=== PATIENT | female | born 1945 | race Caucasian/White ===

== ENCOUNTER 2018-06-23 17:07 | Emergency (ER) | payer MEDICARE ==
[2018-06-23] MEDS ORDERED: SUBLIMAZE 100 MCG/2 ML IV ONE (17:24)
[2018-06-23] MEDS ORDERED: Zofran 4 MG/2 ML VIAL IV ONE (17:24)
[2018-06-23] MEDS ORDERED: Sodium Chloride 0.9% 1000 ML 1,000 ML IV SCH (17:30)
--- NOTE | 2018-06-23 17:32 | ERPHSYRPT ---
- History of Present Illness Time Seen by Provider: 06/23/18 17:15 Source: patient Physician History: PATIENT WITH A HISTORY OF TYPE 2 DIABETES SLIPPED ON OIL ON PAVEMENT [place] [employer] FELL TO GROUND SUSTAINED INJURY TO HER LEFT HIP, KNEE, HDZ AND ANKLE. DENIES HEAD, NECK, OR BACK INJURY. Occurred: just prior to arrival Reason for Fall: slipped Injuries/Pain Location: upper extremity, lower extremity Loss of Consciousness: no loss of consciousness Quality: sharpness, throbbing Severity of Pain-Max: moderate Severity of Pain-Current: moderate Associated Symptoms (Fall): extremity injury Allergies/Adverse Reactions: Penicillins Allergy (Verified 06/23/18 18:09) - Review of Systems Constitutional: No Symptoms Eyes: No Symptoms Ears, Nose, & Throat: Nose Pain Musculoskeletal: Injury, Joint Pain, Joint Swelling Neurological: No Symptoms Psychological: No Symptoms - Nursing Vital Signs Nursing Vital Signs: Initial Vital Signs O2 Sat by Pulse Oximetry 98 06/23/18 17:46 Pain Scale Pain Intensity 6 - Bethesda Coma Score Best Eye Response (Carlyle): (4) open spontaneously Best Verbal Response (Bethesda): (5) oriented Best Motor Response (Bethesda): (6) obeys commands Bethesda Total: 15 - Physical Exam General Appearance: mild distress Head Injury: no evidence of injury Eye Exam: PERRL/EOMI ENT Exam: airway nml Neck Exam: supple, trachea midline, full range of motion, other (THERE IS NO POST CERVICAL SPINAL TENDERNESS,) Respiratory/Chest Exam: normal breath sounds Cardiovascular Exam: normal heart sounds, regular rate/rhythm Extremity Exam: normal inspection, hip tenderness (THERE IS BILATERAL GREATER TROCHANTER TENDERNESS, NO EXTREMITY ROTATION, NO CREPITUS OR ECCHYMOSIS, LEFT KNEE WITH TENDERNESS, LIMITED RANGE OF MOTION, PATELLA MOBILE AND MIDLINE, TENDERNESS. TENDERNESS LEFT HDZ PROXIMAL TO DISTAL ASPECT WITH MINIMAL SWELLING NO CREPITUS OR ECCHYMOSIS. LEFT ANKLE BIMALLEOLAR TENDERNESS WITH MINIMAL SWELLING NO ECCHYMOSIS OR CREPITUS, LIMITED RANGE OF MOTION, LEFT PEDIS PULSE 2 +) Peripheral Pulses: carotid (R): 2+, carotid (L): 2+, femoral (R): 2+, femoral (L ): 2+, dorsalis-pedis (R): 2+, dorsalis-pedis (L): 2+ Neurologic Exam: alert, oriented x 3 Skin Exam: normal color SpO2 Interpretation: normal SpO2: 98 - Radiology Exams Other X-ray Interpretation: Interpreted by me, Negative, No Fracture Right Hip X-ray Interpretation: Interpreted by me, Negative, No Fracture Left Hip X-ray Interpretation: Interpreted by me, Negative, No Fracture Left Femur X-ray Interpretation: Interpreted by me, Negative, No Fracture Left Lower Leg X-ray Interpretation: Interpreted by me, Negative, No Fracture Left Ankle X-ray Interpretation: Interpreted by me, Negative, No Fracture (SOFT TISSUE SWELLING) Ordered Tests: Active Orders 24 hr Category Date Time Status IV Insertion STAT Care 06/23/18 17:24 Active Splint STAT Care 06/23/18 19:28 Active ANKLE (3 VIEWS) Stat Exams 06/23/18 17:21 Taken FEMUR Stat Exams 06/23/18 17:23 Taken HIPS MAKENZIE(2V) INCL PEL IF DONE Stat Exams 06/23/18 17:22 Taken LOWER LEG Stat Exams 06/23/18 17:24 Taken Medication Summary Generic Name Dose Route Start Last Admin Trade Name Freq PRN Reason Stop Dose Admin Sodium Chloride 1,000 mls @ 100 mls/hr 06/23/18 17:30 06/23/18 17:42 Sodium Chloride 0.9% 1000 Ml IV 07/23/18 17:29 100 mls/hr .Q10H MOIZ Administration Discontinued Medications Generic Name Dose Route Start Last Admin Trade Name Freq PRN Reason Stop Dose Admin Fentanyl Citrate 100 mcg 06/23/18 17:24 06/23/18 17:39 Sublimaze 100 Mcg/2 Ml IV 06/23/18 17:25 100 mcg STAT ONE Administration Fentanyl Citrate Confirm 06/23/18 17:34 Sublimaze 100 Mcg/2 Ml Administered 06/23/18 17:35 Dose 100 mcg .ROUTE .STK-MED ONE Ondansetron HCl 4 mg 06/23/18 17:24 06/23/18 17:42 Zofran 4 Mg/2 Ml Vial IV 06/23/18 17:25 4 mg STAT ONE Administration Ondansetron HCl Confirm 06/23/18 17:33 Zofran 4 Mg/2 Ml Vial Administered 06/23/18 17:34 Dose 4 mg .ROUTE .STK-MED ONE - Progress Progress: improved, pain not gone completely Progress Note: 06/23/18 17:46 IV NORMAL SALINE 100ML/HR ZOFRAN 4MG, FENTANYL 0.1MG IV 06/23/18 19:54, APPLICATION LEFT ANKLE VELCRO SPLINT Counseled pt/family regarding: diagnosis, need for follow-up, rad results - Departure Time of Disposition: 20:00 Departure Disposition: Home Clinical Impression: BILATERAL HIP CONTUSIONS, LEFT KNEE CONTUSION, CONTUSION/STRAIN LEFT ANKLE Condition: Stable Critical Care Time: No Referrals: MIRACLE MEDINA MD [Primary Care Provider] - Additional Instructions: AMBULATE USING WALKER ASSISTANCE NONWEIGHT BEARING LEFT FOOT FOR 7 DAYS. CONSULT YOUR PRIMARY CARE PROVIDER FOR FOLLOWUP IN 1 WEEK. ELEVATE FOOT WHILE SITTING OR SUPINE POSITION AND APPLY ICE OVER ANKLE SWELLING EVERY 4 HOURS, 30 MINUTES FOR 48 HOURS. TYLENOL #3 EVERY 6 HOURS NEEDED FOR PAIN. Prescriptions: Codeine Phosphate/APAP #3 [Tylenol #3 Tablet] 1 tab PO Q6H PRN PRN #14 tablet PRN Reason: Pain
[2018-06-23] MEDS ORDERED: Zofran 4 MG/2 ML VIAL ONE (17:33)
[2018-06-23] MEDS ORDERED: SUBLIMAZE 100 MCG/2 ML ONE (17:34)
[2018-06-23] MEDS ORDERED: Sodium Chloride 0.9% 1000 ML 1,000 ML ONE (17:34)
[2018-06-23 20:52] VITALS: BP 151/88
--- NOTE | 2018-06-23 20:55 | XRAY ---
Indication: Pain following fall. Comparison: None 2 views of the left lower leg demonstrates mild osteopenia. No other bony, articular, or soft tissue abnormalities.
[2018-06-23 20:57] VITALS: PULSE 67; O2SAT 97
--- NOTE | 2018-06-23 20:57 | XRAY ---
Indication: Pain following fall. Comparison: Right hip exam December 10, 2008. AP pelvis and 2 views of the left and right hip obtained. There is now mild osteopenia, lower lumbar degenerative spondylosis, and mild degenerative arthropathy of both hips, right greater than left. Incidental pelvic phleboliths and proximal left femur enchondroma. Nothing acute.
--- NOTE | 2018-06-23 21:00 | XRAY ---
Indication: Pain following fall. Comparison: None 3 views of the left ankle demonstrates mild osteopenia and small plantar heel spur. No other bony, articular, or soft tissue abnormalities.
--- NOTE | 2018-06-23 21:00 | XRAY ---
Indication: Pain following fall. Comparison: None 2 views of the left femur demonstrates osteopenia, mild hip/knee degenerative arthropathy, proximal femur shaft enchondroma, tiny distal femur bone island, and tiny fabella. No other bony, articular, or soft tissue abnormalities.
== END 2018-06-23 21:04 | disposition home or self-care (01) ==
LOC: ED 17:07
DX: S70.02XA Contusion of left hip, initial encounter (principal); S70.01XA Contusion of right hip, initial encounter; S80.02XA Contusion of left knee, initial encounter; S90.02XA Contusion of left ankle, initial encounter; W01.0XXA Fall on same level from slipping, tripping and stumbling without subsequent striking against object, initial encounter; Y93.89 Activity, other specified; Y92.524 Gas station as the place of occurrence of the external cause
CPT/HCPCS: 36000; 73521; 73552; 73590; 73610; 96360; 96361; 96374; 96375; 99284; J2405; J3010

== ENCOUNTER 2019-04-29 08:02 | Day surgery (SDC) | payer MEDICARE ==
[~2019-04-29 08:02] MED LIST: Ak-Dilate OPHTHALMIC*** 1.065 ML, Cyclogyl 1% OPHTH SOL 5 ML 1.065 ML, GATIFLOXACIN 0.5... OP ONE; Lactated Ringers 1,000 ML IV ONE; Lactated Ringers 1,000 ML IV SCH; TETRACAINE 0.5% STERI-UNIT SOL OP ONE
[2019-04-29] MEDS ORDERED: TRIMOXI 0.6 ML OPHTH INJECTION OP ONE (09:00)
[2019-04-29] MEDS ORDERED: BETADINE 5% OPHTHALMIC 30 ML OP ONE (10:00)
[2019-04-29] MEDS ORDERED: Zofran 4 MG/2 ML VIAL IV PRN (10:00)
[2019-04-29] MEDS ORDERED: BSS 500 ML, Fortaz/Tazicef 1 GM** 0.2 G IO ONE ×2 (10:00)
[2019-04-29] MEDS ORDERED: Epinephrine Preservative Free 1 MG/ML INTRAOP ONE (10:00)
[2019-04-29] MEDS ORDERED: ACETAZOLAMIDE 250 MG TABLET PO ONE (10:00)
[2019-04-29] MEDS ORDERED: LIDOCAINE HCL 1% AMPUL 5 ML IJ ONE (10:00)
[2019-04-29] MEDS ORDERED: DIPRIVAN 200 MG/20 ML IV ONE ×2 (10:54→11:07)
[2019-04-29 11:56] VITALS: BP 140/65; O2SAT 95
[2019-04-29 12:14] VITALS: PULSE 60
--- NOTE | 2019-04-29 15:40 | OP ---
DATE/TIME OF OPERATION: 04/29/2019 1056 TIME DICTATED: 1442 PREOPERATIVE DIAGNOSIS: Senile cataract of right eye. POSTOPERATIVE DIAGNOSIS: Senile cataract of right eye. SURGEON: Roxie Pryor MD ENTERPRISE BUSINESS ARCHITECT: None. OPERATION: Cataract extraction of right eye with an intraocular lens implant. STANDARD __X___ COMPLEX ANESTHESIA: MAC. ___X__ Monitored anesthesia care in combination with topical and intra-cameral anesthesia (because of the established specific risk of reflux, arrhythmias, or an anxiety attack associated with ocular manipulation as well as difficulty of the software test developer to manage such potentially catastrophic events while simultaneously attempting to complete the surgical procedure, it was deemed necessary for the patient's safety to have an anesthesiologist or a nurse environmental planner present during the procedure whenever possible. The anesthesiologist or the nurse environmental planner was utilized to monitor and regulate the intravenous sedation of the patient, so the patient was cooperative, relaxed, and comfortable). Topical anesthesia using Tetracaine eye drops together with intra cameral anesthesia using Lidocaine 1% MPF. The nurse was utilized to monitor the patient. ANESTHESIA PROVIDER: Shamir Batista CRNA. COMPLICATIONS: None. BLOOD LOSS: None. INDICATIONS: The patient is undergoing cataract surgery in the hopes of eliminating the visual complaints and difficulty. PROCEDURE: After arriving at the facility's outpatient surgery area, an IV was started; the patient was given 5 mg of p.o. Versed. (If an anesthesia provider was not monitoring the patient) The patient was then given topical anesthetic Tetracaine eye drops. A cotton pellet was soaked into a solution of a combination of Zymaxid 0.5%, Amari-Synephrine 2.5% and Ocufen (other drops might have been substituted referenced in the patient's record). The pellet was inserted by the RN into the lower conjunctival cul-de-sac with a sterile forceps and left for 20 minutes. The pellet was then removed by the RN with a sterile forceps before taking the patient to the operating room. The preoperative area nurse identified the patient and marked the correct eye to be operated on. I identified the correct eye to be operated on and marked it appropriately in the outpatient surgery area. The patient was then taken into the operating room. Tetracaine eye drops were installed again in the correct eye. The eyelids and the lashes and the lid margins were scrubbed with Betadine solution. One drop of the diluted Betadine solution was placed in the conjunctival cul-de-sac for 45 seconds and then was irrigated. A drop of Tetracaine Gel was placed in the conjunctival cul-de-sac. The patient's forehead was taped to secure it during the procedure. The patient was monitored. The patient was then draped in the usual way for this procedure. An eye speculum was used to separate the eyelids. The eye was then fixated and a temporal 2.5 mm incision was made in the clear cornea temporally at the limbus. Through the incision, 0.25 cc of 1% non-preserved lidocaine was injected into the anterior chamber for intracameral anesthesia. The anterior chamber was then filled with viscoelastic. The pupil was small. I felt that it would be safer to mechanically dilate the pupil. A Malyugin ring was used at this point which dilated the pupil. That was removed at the end of the procedure prior to aspiration of the viscoelastic from the anterior chamber and posterior to the intraocular lens implant. The cataract had a great amount of cortical changes. That rendered seeing the anterior capsule difficult for a safe performance of an anterior capsulotomy. I injected an air bubble into the anterior chamber. I then injected 1 ML of vision blue solution into the anterior chamber. The vision blue solution was irrigated from the anterior chamber after 30 seconds. The anterior capsule was stained which facilitated performing the anterior capsulotomy safely. After that was completed, a cystotome was introduced into the anterior chamber and a round anterior capsulotomy was performed. The capsule was removed by a forceps. Hydrodissection was next carried utilizing a 25-gauge cannula and balanced salt solution to delineate the cortical material from the capsule and the nucleus from the cortical material. The nucleus was rotated freely into the capsular bag with no difficulty. The phaco tip of the [employer] Phacoemulsifier was introduced into the anterior chamber and two grooves were made into the nucleus 90 degrees apart. Using two spatulas resulted into the nucleus being fractured into four quadrants. The phaco tip was then used to remove each quadrant of the nucleus. Viscoelastic was used during this process to protect the corneal endothelium. Once the entire nucleus was removed, the phaco tip then was removed and the irrigation tip was introduced into the eye and the cortex was removed. The posterior capsule was polished. It was noticed that there was a tear into the posterior capsule with few vitreous strands into the pupil plan. An anterior vitrectomy was performed. A 19.50 diopter, SN60WF, posterior chamber lens implant, was inspected and found to be grossly normal. The implant was inserted into the implant injector cartridge; Viscoelastic again was introduced into the anterior chamber, which filled the capsular bag. The implant injector's cartridge tip was placed at the limbal wound and the posterior chamber implant was released into the capsular bag and rotated appropriately. The implant was found to be into the capsular bag and it was centered. ___X__ 0.2 ml of Tri-Moxi was introduced via 27 gauge cannula into the vitreous cavity through the ciliary processes. Viscoelastic was aspirated from the anterior chamber and posterior to the intraocular lens implant from the capsular bag using the irrigating tip. The anterior chamber was irrigated and filled with 5 cc antibiotic solution (500 cc of BSS plus 2 ml of Fortaz 100 mg/ml) ( if patient was not allergic to the medication). The lips of the corneal incision were hydrated using BSS solution. The anterior chamber was checked and found to be water tight. One drop each of antibiotic, steroid and NSAID drops (refer to chart for drops used) were placed in the conjunctival cul-de-sac of the operated eye. Patient tolerated the procedure quite well and left the operating room in satisfactory condition. DISCHARGE SUMMARY: The patient was released in stable condition. The patient and those with the patient were given an instruction sheet as of how to care for the eye after surgery as well as counseling on any abnormal laboratory studies by the postoperative RN. The patient was also given an appointment card for follow-up in the office and is to call immediately for any difficulties including but not limited to pain in the eye, decreased vision, discharge from the eye, headache and or fever. DISCHARGE DIAGNOSIS: Pseudophakia of right eye.
== END 2019-04-29 12:29 | disposition home or self-care (01) ==
LOC: SDC 08:02
PROVIDERS: ATTEND Ophthalmology
DX: H25.811 Combined forms of age-related cataract, right eye (principal); E11.9 Type 2 diabetes mellitus without complications; I10 Essential (primary) hypertension; E78.00 Pure hypercholesterolemia, unspecified; Z79.899 Other long term (current) drug therapy
CPT/HCPCS: 82962; 99100; C1780; J0171; J2704; A9270-GY

== ENCOUNTER 2019-05-27 06:49 | Day surgery (SDC) | payer MEDICARE ==
[~2019-05-27 06:49] MED LIST changes: -Lactated Ringers 1,000 ML IV ONE
[2019-05-27] MEDS ORDERED: Lactated Ringers 1,000 ML IV ONE (07:10)
[2019-05-27 07:22] VITALS: O2SAT 96
[2019-05-27] MEDS ORDERED: DIPRIVAN 200 MG/20 ML IV ONE (08:28)
[2019-05-27] MEDS ORDERED: BETADINE 5% OPHTHALMIC 30 ML OP ONE (09:00)
[2019-05-27] MEDS ORDERED: ACETAZOLAMIDE 250 MG TABLET PO ONE (09:00)
[2019-05-27] MEDS ORDERED: Epinephrine Preservative Free 1 MG/ML INTRAOP ONE (09:00)
[2019-05-27] MEDS ORDERED: Zofran 4 MG/2 ML VIAL IV PRN (09:00)
[2019-05-27] MEDS ORDERED: LIDOCAINE HCL 1% AMPUL 5 ML IJ ONE (09:00)
[2019-05-27 09:44] VITALS: BP 156/77; PULSE 70
--- NOTE | 2019-05-27 15:44 | OP ---
DATE/TIME OF OPERATION: 05/27/2019 0836 TIME DICTATED: 1437 PREOPERATIVE DIAGNOSIS: Senile cataract of left eye. POSTOPERATIVE DIAGNOSIS: Senile cataract of left eye. SURGEON: Roxie Pryor MD BOOM TENDER: None. OPERATION: Cataract extraction of left eye with an intraocular lens implant. STANDARD __X___ COMPLEX ANESTHESIA: MAC. ___X__ Monitored anesthesia care in combination with topical and intra-cameral anesthesia (because of the established specific risk of reflux, arrhythmias, or an anxiety attack associated with ocular manipulation as well as difficulty of the hr payroll coordinator to manage such potentially catastrophic events while simultaneously attempting to complete the surgical procedure, it was deemed necessary for the patient's safety to have an anesthesiologist or a nurse page makeup system operator present during the procedure whenever possible. The anesthesiologist or the nurse page makeup system operator was utilized to monitor and regulate the intravenous sedation of the patient, so the patient was cooperative, relaxed, and comfortable). Topical anesthesia using Tetracaine eye drops together with intra cameral anesthesia using Lidocaine 1% MPF. The nurse was utilized to monitor the patient. ANESTHESIA PROVIDER: Shamir Batista CRNA. COMPLICATIONS: None. BLOOD LOSS: None. INDICATIONS: The patient is undergoing cataract surgery in the hopes of eliminating the visual complaints and difficulty. PROCEDURE: After arriving at the facility's outpatient surgery area, an IV was started; the patient was given 5 mg of p.o. Versed. (If an anesthesia provider was not monitoring the patient) The patient was then given topical anesthetic Tetracaine eye drops. A cotton pellet was soaked into a solution of a combination of Zymaxid 0.5%, Maari-Synephrine 2.5% and Ocufen (other drops might have been substituted referenced in the patient's record). The pellet was inserted by the RN into the lower conjunctival cul-de-sac with a sterile forceps and left for 20 minutes. The pellet was then removed by the RN with a sterile forceps before taking the patient to the operating room. The preoperative area nurse identified the patient and marked the correct eye to be operated on. I identified the correct eye to be operated on and marked it appropriately in the outpatient surgery area. The patient was then taken into the operating room. Tetracaine eye drops were installed again in the correct eye. The eyelids and the lashes and the lid margins were scrubbed with Betadine solution. One drop of the diluted Betadine solution was placed in the conjunctival cul-de-sac for 45 seconds and then was irrigated. A drop of Tetracaine Gel was placed in the conjunctival cul-de-sac. The patient's forehead was taped to secure it during the procedure. The patient was monitored. The patient was then draped in the usual way for this procedure. An eye speculum was used to separate the eyelids. The eye was then fixated and a temporal 2.5 mm incision was made in the clear cornea temporally at the limbus. Through the incision, 0.25 cc of 1% non-preserved lidocaine was injected into the anterior chamber for intracameral anesthesia. The anterior chamber was then filled with viscoelastic. The pupil was small. I felt that it would be safer to mechanically dilate the pupil. A Malyugin ring was used at this point which dilated the pupil. That was removed at the end of the procedure prior to aspiration of the viscoelastic from the anterior chamber and posterior to the intraocular lens implant. The cataract had a great amount of cortical changes. That rendered seeing the anterior capsule difficult for a safe performance of an anterior capsulotomy. I injected an air bubble into the anterior chamber. I then injected 1 ML of vision blue solution into the anterior chamber. The vision blue solution was irrigated from the anterior chamber after 30 seconds. The anterior capsule was stained which facilitated performing the anterior capsulotomy safely. After that was completed, a cystotome was introduced into the anterior chamber and a round anterior capsulotomy was performed. The capsule was removed by a forceps. Hydrodissection was next carried utilizing a 25-gauge cannula and balanced salt solution to delineate the cortical material from the capsule and the nucleus from the cortical material. The nucleus was rotated freely into the capsular bag with no difficulty. The phaco tip of the [employer] Phacoemulsifier was introduced into the anterior chamber and two grooves were made into the nucleus 90 degrees apart. Using two spatulas resulted into the nucleus being fractured into four quadrants. The phaco tip was then used to remove each quadrant of the nucleus. Viscoelastic was used during this process to protect the corneal endothelium. Once the entire nucleus was removed, the phaco tip then was removed and the irrigation tip was introduced into the eye and the cortex was removed. The posterior capsule was polished. It was noticed that there was a tear into the posterior capsule with few vitreous strands into the pupil plan. An anterior vitrectomy was performed. A 19.50 diopter, SN60WF, posterior chamber lens implant, was inspected and found to be grossly normal. The implant was inserted into the implant injector cartridge; Viscoelastic again was introduced into the anterior chamber, which filled the capsular bag. The implant injector's cartridge tip was placed at the limbal wound and the posterior chamber implant was released into the capsular bag and rotated appropriately. The implant was found to be into the capsular bag and it was centered. ___X__ 0.2 ml of Tri-Moxi was introduced via 27 gauge cannula into the vitreous cavity through the ciliary processes. Viscoelastic was aspirated from the anterior chamber and posterior to the intraocular lens implant from the capsular bag using the irrigating tip. The anterior chamber was irrigated and filled with 5 cc antibiotic solution (500 cc of BSS plus 2 ml of Fortaz 100 mg/ml) ( if patient was not allergic to the medication). The lips of the corneal incision were hydrated using BSS solution. The anterior chamber was checked and found to be water tight. One drop each of antibiotic, steroid and NSAID drops (refer to chart for drops used) were placed in the conjunctival cul-de-sac of the operated eye. Patient tolerated the procedure quite well and left the operating room in satisfactory condition. DISCHARGE SUMMARY: The patient was released in stable condition. The patient and those with the patient were given an instruction sheet as of how to care for the eye after surgery as well as counseling on any abnormal laboratory studies by the postoperative RN. The patient was also given an appointment card for follow-up in the office and is to call immediately for any difficulties including but not limited to pain in the eye, decreased vision, discharge from the eye, headache and or fever. DISCHARGE DIAGNOSIS: Pseudophakia of left eye.
== END 2019-05-27 08:48 | disposition home or self-care (01) ==
LOC: SDC 06:49
PROVIDERS: ATTEND Ophthalmology
DX: H25.812 Combined forms of age-related cataract, left eye (principal); E11.9 Type 2 diabetes mellitus without complications; I10 Essential (primary) hypertension; E78.00 Pure hypercholesterolemia, unspecified; Z79.899 Other long term (current) drug therapy
CPT/HCPCS: 82962; 99100; C1780; J0171; J2704; A9270-GY

== ENCOUNTER 2023-07-26 15:58 | Observation (INO) | payer MEDICARE ==
--- NOTE | 2023-07-26 16:21 | ERPHSYRPT ---
- History of Present Illness Time Seen by Provider: 07/26/23 16:20 Source: patient, family Exam Limitations: no limitations Physician History: This is a 78-year-old white female patient of Dr. Medina who presents to the emergency department with symptoms of weakness that suddenly began approximately 2 PM. This occurred while she was out and about at the grocery store. Ordinarily she walks well with a cane. She has chronic right hip pain and walking issues. She denies chest pain. She denies shortness of breath. When she arrived to the emergency department she required 1-2 people to help his sister to her bed. She stated "feels like everything is vibrating past her". She stated that she also feels like everything is drawing to the right side. She denies visual changes. She denies abdominal pain. She had been diagnosed with COVID-19 infection in early June 2023. However, she has been around her grandchild within the last week who has active COVID-19 infection. Timing/Duration: today Severity: mild (To moderate) Associated Symptoms: weakness, No vomiting, No abdominal pain, No shortness of breath, No chest pain, No headaches Allergies/Adverse Reactions: Penicillins Allergy (Verified 07/26/23 16:34) Hives swelling Home Medications: Carvedilol [Coreg ] 6.25 mg PO BID 04/24/19 [History] Losartan/Hydrochlorothiazide [Losartan-Hctz 100-25 mg Tab] 1 each PO DAILY 04/24/19 [History] Pravastatin Sodium [Pravachol] 40 mg PO DAILY 04/24/19 [History] Insulin Glargine,Hum.rec.anlog [Lantus] 30 units SQ DAILY 07/26/23 [History] Hx Tetanus, Diphtheria Vaccination/Date Given: Yes Hx Influenza Vaccination/Date Given: Yes Hx Pneumococcal Vaccination/Date Given: Yes Travel Risk - International Travel Have you traveled outside of the country in past 3 weeks: No - Coronavirus Screening Are you exhibiting any of the following symptoms?: No Close contact with a COVID-19 positive Pt in past 14-21 Days: No - Review of Systems Constitutional: Weakness Eyes: No Symptoms Ears, Nose, & Throat: No Symptoms Respiratory: No Symptoms Cardiac: No Symptoms Abdominal/Gastrointestinal: No Symptoms Genitourinary Symptoms: No Symptoms Musculoskeletal: No Symptoms Neurological: Other (Feels as though when she is trying to walk she has been pulled to the right side) Psychological: No Symptoms Endocrine: No Symptoms Hematologic/Lymphatic: No Symptoms Immunological/Allergic: No Symptoms All Other Systems: Reviewed and Negative - Past Medical History Pertinent Past Medical History: Yes Neurological History: No Pertinent History ENT History: Cataracts Cardiac History: High Cholesterol, Hypertension Respiratory History: COPD Endocrine Medical History: Diabetes Type II Musculoskeletal History: No Pertinent History GI Medical History: No Pertinent History History: No Pertinent History Psycho-Social History: No Pertinent History Female Reproductive Disorders: No Pertinent History - Past Surgical History Past Surgical History: Yes Neuro Surgical History: No Pertinent History Cardiac: No Pertinent History Respiratory: No Pertinent History Gastrointestinal: No Pertinent History Genitourinary: No Pertinent History Musculoskeletal: No Pertinent History Female Surgical History: Section, Tubal Ligation - Social History Smoking Status: Never smoker Exposure to second hand smoke: No Drug Use: none Patient Lives Alone: No - Nursing Vital Signs Nursing Vital Signs: Initial Vital Signs Temperature 97.2 F 07/26/23 16:11 Pulse Rate 66 07/26/23 16:11 Blood Pressure 128/75 07/26/23 16:11 O2 Sat by Pulse Oximetry 98 07/26/23 16:11 Pain Scale Pain Intensity 0 - Physical Exam General Appearance: no apparent distress, alert, anxiety Eye Exam: PERRL/EOMI, eyes nml inspection Ears, Nose, Throat Exam: normal ENT inspection, moist mucous membranes Neck Exam: normal inspection, non-tender, supple, full range of motion Respiratory Exam: normal breath sounds, lungs clear, airway intact, No chest tenderness, No respiratory distress Cardiovascular Exam: regular rate/rhythm, normal heart sounds, normal peripheral pulses Gastrointestinal/Abdomen Exam: soft, normal bowel sounds, No tenderness Pelvic Exam: not done Rectal Exam: not done Back Exam: normal inspection, normal range of motion, No CVA tenderness, No vertebral tenderness Extremity Exam: normal inspection, normal range of motion, pelvis stable, limited range of motion (Primarily her bilateral lower extremities secondary to generalized weakness. Nothing focal) Neurologic Exam: alert (Bilateral upper extremities), oriented x 3, cooperative, light industrial II-XII nml as tested, normal mood/affect, sensation nml, motor weakness (Bilateral lower extremities General.), other (Patient is alert and oriented x 4. She does not have focal) Skin Exam: normal color, warm, dry Lymphatic Exam: No adenopathy ( neurologic abnormality on my examination at this time.) SpO2 Interpretation: normal O2 Delivery: Room Air - Course Nursing assessment & vital signs reviewed: Yes Ordered Tests: Active Orders 24 hr Category Date Time Status EKG-ER Only STAT Care 07/26/23 16:32 Active IV Insertion STAT Care 07/26/23 16:32 Active NPO (ED) STAT Care 07/26/23 16:32 Active POCT Glucose Check STAT Care 07/26/23 16:32 Active Pulse Oximetry (ED) STAT Care 07/26/23 16:32 Active HEAD WITHOUT CONTRAST [CT] Stat Exams 07/26/23 16:25 Completed BLOOD CULTURE Stat Lab 07/26/23 17:10 Received CBC W DIFF Stat Lab 07/26/23 16:30 Completed CMP Stat Lab 07/26/23 16:30 Completed MONO SCREEN Stat Lab 07/26/23 16:30 Completed POCT GLUCOSE Stat Lab 07/26/23 16:18 Completed PROTIME WITH INR Stat Lab 07/26/23 16:30 Completed UA W/RFX UR CULTURE Stat Lab 07/26/23 16:43 Completed Medication Summary Generic Name Dose Route Start Last Admin Trade Name Freq PRN Reason Stop Dose Admin Sodium Chloride 1,000 mls @ 100 mls/hr 07/26/23 16:45 07/26/23 18:35 Sodium Chloride 0.9% 1000 Ml IV 08/25/23 16:44 100 mls/hr .Q10H MOIZ Administration Lab/Rad Data: Laboratory Result Diagrams 07/26/23 16:30 07/26/23 16:30 Laboratory Results 07/26/23 07/26/23 07/26/23 Range/Units 17:10 16:43 16:30 WBC (4.0-10.5) x10^3/uL RBC (4.1-5.4) x10^6/uL Hgb (12.0-16.0) g/dL Hct (35-47) % MCV (78-100) fL MCH (26-32) pg MCHC (32-36) g/dL RDW (11.5-14.0) % Plt Count (150-450) x10^3/uL MPV (7.5-11.0) fL Gran % (36.0-66.0) % Immature Gran % (Auto) (0.00-0.4) % Nucleat RBC Rel Count (0.00-0.1) % Eos # (Auto) (0-0.5) x10^3/uL Immature Gran # (Auto) (0.00-0.03) x10^3u/L Absolute Lymphs (auto) (1.0-4.6) x10^3/uL Absolute Monos (auto) (0.0-1.3) x10^3/uL Absolute Nucleated RBC (0.00-0.01) x10^3u/L Lymphocytes % (24.0-44.0) % Monocytes % (0.0-12.0) % Eosinophils % (0.00-5.0) % Basophils % (0.0-0.4) % Absolute Granulocytes (1.4-6.9) x10^3/uL Basophils # (0-0.4) x10^3/uL PT (9.4-12.5) SECONDS INR (0.8-3.0) Sodium (137-145) mmol/L Potassium (3.5-5.1) mmol/L Chloride (98-107) mmol/L Carbon Dioxide (22-30) mmol/L Anion Gap (5-15) MEQ/L BUN (7-17) mg/dL Creatinine (0.52-1.04) mg/dL Estimated GFR ML/MIN Glucose (74-106) mg/dL POC Glucometer (74 to 106) mg/dL Calcium (8.4-10.2) mg/dL Total Bilirubin (0.2-1.3) mg/dL AST (14-36) U/L ALT (0-35) U/L Alkaline Phosphatase (38-126) U/L Serum Total Protein (6.3-8.2) g/dL Albumin (3.5-5.0) g/dL Urine Color Yellow (Yellow) Urine Appearance Clear (Clear) Urine pH 5.5 (4.6-8.0) Ur Specific [place] >=1.030 A (1.005-1.030) Urine Protein Negative (Negative) Urine Glucose (UA) >=1000 A (Negative) mg/dL Urine Ketones Negative (Negative) Urine Blood Negative (Negative) Urine Nitrite Negative (Negative) Urine Bilirubin Negative (Negative) Urine Urobilinogen 1.0 A (0.2) mg/dL Ur Leukocyte Esterase Negative (Negative) U Hyaline Cast (Auto) NONE SEEN (0-2) /LPF Urine Microscopic RBC 0-2 (0-5) /HPF Urine Microscopic WBC 6-10 A (0-5) /HPF Ur Epithelial Cells Few (None Seen) /HPF Urine Bacteria None Seen (None Seen) /HPF Urine Culture Reflexed NO (NO) Monoscreen WEAKLY POSITIVE A (NEGATIVE) Influenza Type A Ag NEGATIVE (NEGATIVE) Influenza Type B Ag NEGATIVE (NEGATIVE) RSV (PCR) NEGATIVE (NEGATIVE) SARS-CoV-2 (PCR) POSITIVE A (NEGATIVE) 07/26/23 07/26/23 07/26/23 Range/Units 16:30 16:30 16:30 WBC 4.5 (4.0-10.5) x10^3/uL RBC 4.49 (4.1-5.4) x10^6/uL Hgb 13.4 (12.0-16.0) g/dL Hct 40.7 (35-47) % MCV 90.6 (78-100) fL MCH 29.8 (26-32) pg MCHC 32.9 (32-36) g/dL RDW 13.4 (11.5-14.0) % Plt Count 191 (150-450) x10^3/uL MPV 9.1 (7.5-11.0) fL Gran % 58.4 (36.0-66.0) % Immature Gran % (Auto) 0.2 (0.00-0.4) % Nucleat RBC Rel Count 0.0 (0.00-0.1) % Eos # (Auto) 0.14 (0-0.5) x10^3/uL Immature Gran # (Auto) 0.01 (0.00-0.03) x10^3u/L Absolute Lymphs (auto) 1.44 (1.0-4.6) x10^3/uL Absolute Monos (auto) 0.27 (0.0-1.3) x10^3/uL Absolute Nucleated RBC 0.00 (0.00-0.01) x10^3u/L Lymphocytes % 31.7 (24.0-44.0) % Monocytes % 5.9 (0.0-12.0) % Eosinophils % 3.1 (0.00-5.0) % Basophils % 0.7 (0.0-0.4) % Absolute Granulocytes 2.65 (1.4-6.9) x10^3/uL Basophils # 0.03 (0-0.4) x10^3/uL PT 9.9 (9.4-12.5) SECONDS INR 0.90 (0.8-3.0) Sodium 133 L (137-145) mmol/L Potassium 3.7 (3.5-5.1) mmol/L Chloride 105 (98-107) mmol/L Carbon Dioxide 22 (22-30) mmol/L Anion Gap 11.0 (5-15) MEQ/L BUN 11 (7-17) mg/dL Creatinine 0.42 L (0.52-1.04) mg/dL Estimated GFR 100.7 ML/MIN Glucose 344 H (74-106) mg/dL POC Glucometer (74 to 106) mg/dL Calcium 9.3 (8.4-10.2) mg/dL Total Bilirubin 0.30 (0.2-1.3) mg/dL AST 25 (14-36) U/L ALT 19 (0-35) U/L Alkaline Phosphatase 112 (38-126) U/L Serum Total Protein 6.7 (6.3-8.2) g/dL Albumin 3.6 (3.5-5.0) g/dL Urine Color (Yellow) Urine Appearance (Clear) Urine pH (4.6-8.0) Ur Specific [place] (1.005-1.030) Urine Protein (Negative) Urine Glucose (UA) (Negative) mg/dL Urine Ketones (Negative) Urine Blood (Negative) Urine Nitrite (Negative) Urine Bilirubin (Negative) Urine Urobilinogen (0.2) mg/dL Ur Leukocyte Esterase (Negative) U Hyaline Cast (Auto) (0-2) /LPF Urine Microscopic RBC (0-5) /HPF Urine Microscopic WBC (0-5) /HPF Ur Epithelial Cells (None Seen) /HPF Urine Bacteria (None Seen) /HPF Urine Culture Reflexed (NO) Monoscreen (NEGATIVE) Influenza Type A Ag (NEGATIVE) Influenza Type B Ag (NEGATIVE) RSV (PCR) (NEGATIVE) SARS-CoV-2 (PCR) (NEGATIVE) 07/26/23 Range/Units 16:18 WBC (4.0-10.5) x10^3/uL RBC (4.1-5.4) x10^6/uL Hgb (12.0-16.0) g/dL Hct (35-47) % MCV (78-100) fL MCH (26-32) pg MCHC (32-36) g/dL RDW (11.5-14.0) % Plt Count (150-450) x10^3/uL MPV (7.5-11.0) fL Gran % (36.0-66.0) % Immature Gran % (Auto) (0.00-0.4) % Nucleat RBC Rel Count (0.00-0.1) % Eos # (Auto) (0-0.5) x10^3/uL Immature Gran # (Auto) (0.00-0.03) x10^3u/L Absolute Lymphs (auto) (1.0-4.6) x10^3/uL Absolute Monos (auto) (0.0-1.3) x10^3/uL Absolute Nucleated RBC (0.00-0.01) x10^3u/L Lymphocytes % (24.0-44.0) % Monocytes % (0.0-12.0) % Eosinophils % (0.00-5.0) % Basophils % (0.0-0.4) % Absolute Granulocytes (1.4-6.9) x10^3/uL Basophils # (0-0.4) x10^3/uL PT (9.4-12.5) SECONDS INR (0.8-3.0) Sodium (137-145) mmol/L Potassium (3.5-5.1) mmol/L Chloride (98-107) mmol/L Carbon Dioxide (22-30) mmol/L Anion Gap (5-15) MEQ/L BUN (7-17) mg/dL Creatinine (0.52-1.04) mg/dL Estimated GFR ML/MIN Glucose (74-106) mg/dL POC Glucometer 316 H (74 to 106) mg/dL Calcium (8.4-10.2) mg/dL Total Bilirubin (0.2-1.3) mg/dL AST (14-36) U/L ALT (0-35) U/L Alkaline Phosphatase (38-126) U/L Serum Total Protein (6.3-8.2) g/dL Albumin (3.5-5.0) g/dL Urine Color (Yellow) Urine Appearance (Clear) Urine pH (4.6-8.0) Ur Specific [place] (1.005-1.030) Urine Protein (Negative) Urine Glucose (UA) (Negative) mg/dL Urine Ketones (Negative) Urine Blood (Negative) Urine Nitrite (Negative) Urine Bilirubin (Negative) Urine Urobilinogen (0.2) mg/dL Ur Leukocyte Esterase (Negative) U Hyaline Cast (Auto) (0-2) /LPF Urine Microscopic RBC (0-5) /HPF Urine Microscopic WBC (0-5) /HPF Ur Epithelial Cells (None Seen) /HPF Urine Bacteria (None Seen) /HPF Urine Culture Reflexed (NO) Monoscreen (NEGATIVE) Influenza Type A Ag (NEGATIVE) Influenza Type B Ag (NEGATIVE) RSV (PCR) (NEGATIVE) SARS-CoV-2 (PCR) (NEGATIVE) - Progress Progress: improved, re-examined Progress Note: 07/26/23 17:29 This patient's medical issue is 1 of moderate to high complexity. The level complexity in the workup performed is based on review of the patient's past medical history, review of the patient's medication list, reviewed patient's drug allergy list, history of present illness and physical findings on examination. Workup in this patient includes placement of intravenous line, urinalysis, stat CT scan of the head, twelve-lead EKG, troponin level, urinalysis, infusion of normal saline solution, CBC, CMP, mono test, viral swabs. 07/26/23 19:15 I reviewed the results of this patient's laboratory workup. I interpreted him and is a positive mono test and positive COVID-19 infection test. This could account for the patient's symptoms of weakness. CAT scan of the head without contrast shows a nonacute senile brain with minimal right maxillary sinus disease. This study was interpreted by the radiologist and I reviewed the impression. I went in to reexamine the patient. Patient states that she is feeling much better. She is moving all extremities. She has no speech difficulties. She is hearing well. She still feels weak. We are awaiting the teleneuro consultation to see if the patient needs to be placed in the hospital for further testing or can be discharged to home. 07/26/23 20:13 I spoke with the teleneurologist Dr. Griffith. She examined the patient and reviewed the history and workup findings. She states she has a low suspicion for a CVA. However, we both feel that the patient is at mild risk for discharge tonight. My plan is to place her in observation and per Dr. Griffith's i nstructions obtain an MRI of the brain without contrast tomorrow morning, start her on a baby aspirin. Patient is already on a statin drug so she states that if the MRI of the brain is negative, the aspirin can be stopped. Obviously we also need to treat her underlying infection. I have put a call into our telehospitalist. Discussed with : Forrest (I spoke with Dr. Bell. I reviewed the patient history, chief complaint and workup results. He agrees to place the patient in observation) Counseled pt/family regarding: lab results, diagnosis, rad results Medical Desision Making - Independent Historian Additional History obtained from: Spouse - Diagnostic Testing Diagnostic test were ordered, analyzed, and reviewed by me: Yes Radiological Interpretation: Reviewed by me, Teleradiologist Report - Risk of complications The pt has a high risk of morbidity or mortality based on: Decision regarding hospitilization or escalation of hosp level of care - Departure Departure Disposition: Observation Clinical Impression: Weakness, COVID-19 virus infection, Mononucleosis, Hyperglycemia Condition: Stable Critical Care Time: No Referrals: MIRACLE MEDINA MD [Primary Care Provider] - Follow up/PCP as directed
[2023-07-26] MEDS ORDERED: Sodium Chloride 0.9% 1000 ML 1,000 ML IV SCH (16:45)
--- NOTE | 2023-07-26 16:47 | XRAY ---
Indication: Weakness with pull to the right. Multiple contiguous images obtained through the head without contrast. Comparison: None Age-appropriate global atrophy and minimal periventricular degenerative micro-ischemia bilaterally. No acute intracranial hemorrhage, abnormal extra-axial fluid collection, or mass effect. Fourth ventricle is midline without hydrocephalus. Bony calvarium intact. Tiny fluid leveling right maxillary sinus. Remaining paranasal sinuses and mastoid air cells are clear. Impression: Nonacute senile brain. Minimal right maxillary sinus disease.
[2023-07-26 16:55] LABS: Absolute Neutrophil Ct (ANC) 2.65 x10^3/uL (1.4-6.9); BASOPHIL % 0.7 % (0.0-0.4); Basophil (Absolute #) 0.03 x10^3/uL (0-0.4); Eosinophil % 3.1 % (0.00-5.0); Eosinophil (Absolute #) 0.14 x10^3/uL (0-0.5); Hematocrit 40.7 % (35-47); Hemoglobin 13.4 g/dL (12.0-16.0); IMMATURE GRAN # 0.01 x10^3u/L (0.00-0.03); IMMATURE GRAN % 0.2 % (0.00-0.4); Lymphocyte (Absolute #) 1.44 x10^3/uL (1.0-4.6); Lymphocytes % 31.7 % (24.0-44.0); Mean Cell Volume 90.6 fL (78-100); Mean Corpuscular Hemoglobin 29.8 pg (26-32); Mean Corpuscular Hgb Concent. 32.9 g/dL (32-36); Mean Platelet Volume 9.1 fL (7.5-11.0); Monocyte (Absolute #) 0.27 x10^3/uL (0.0-1.3); Monocytes % 5.9 % (0.0-12.0); Neutrophil % 58.4 % (36.0-66.0); Platelet Count 191 x10^3/uL (150-450); Red Blood Count 4.49 x10^6/uL (4.1-5.4); Red Cell Distribution Width 13.4 % (11.5-14.0); White Blood Count 4.5 x10^3/uL (4.0-10.5)
[2023-07-26 17:03] LABS: ADD URINE CULTURE? NO (NO); Appearance Clear (Clear); Bacteria None Seen /HPF (None Seen); Bilirubin Negative (Negative); Blood Negative (Negative); Epithelial Cells Few /HPF (None Seen); Glucose, Urine >=1000 mg/dL (Negative); Hyaline Casts NONE SEEN /LPF (0-2); Ketones Negative (Negative); Leukocyte Esterase Negative (Negative); Nitrite Negative (Negative); Ph 5.5 (4.6-8.0); Protein,Urine Dip Negative (Negative); RBC 0-2 /HPF (0-5); Specific Gravity >=1.030 (1.005-1.030)
[2023-07-26 17:11] LABS: INR 0.9 (0.8-3.0); PROTIME 9.9 SECONDS (9.4-12.5)
[2023-07-26 17:16] LABS: ALBUMIN 3.6 g/dL (3.5-5.0); BILIRUBIN,TOTAL 0.3 mg/dL (0.2-1.3); Calcium 9.3 mg/dL (8.4-10.2); Creatinine 1 0.42 mg/dL (0.52-1.04); EST GLOMERULAR FILTRATION RATE 100.7 ML/MIN; Potassium 3.7 mmol/L (3.5-5.1); Total Protein 6.7 g/dL (6.3-8.2)
[2023-07-26 18:06] LABS: INFLUENZA A NEGATIVE (NEGATIVE); INFLUENZA B NEGATIVE (NEGATIVE); RESPIRATORY SYNCTIAL VIRUS NEGATIVE (NEGATIVE)
[2023-07-26 18:10] LABS: SARS-CoV-2 Xpert Express POSITIVE (NEGATIVE)
[2023-07-26] MEDS ORDERED: Sodium Chloride 0.9% 1000 ML 1,000 ML ONE (18:32)
[2023-07-26] MEDS ORDERED: BABY ASPIRIN 81 MG CHEW PO ONE (20:24)
[2023-07-26] MEDS ORDERED: BABY ASPIRIN 81 MG CHEW ONE (20:32)
[2023-07-26] MEDS ORDERED: HUMULIN R SQ PRN (20:59)
[2023-07-26] MEDS ORDERED: Zofran 4 MG/2 ML VIAL IV PRN (20:59)
[2023-07-26] MEDS: Sodium Chloride 0.9% 1000 ML 1,000 ML IV SCH (21:49)
[2023-07-26] MEDS: TYLENOL 325 MG PO PRN (21:52)
--- NOTE | 2023-07-26 23:25 | PCM.HP ---
History of Present Illness - Chief Complaint Chief Complaint: COVID-19 infection Date: 07/26/23 History of Present Illness: Ms. Medina is a 78 year-old female with HTN, HLD, and DM2 who presents with weakness inlcuding some right-sided focal weakness. She admits to one week of generalized weakness with worsening today - she noticed some right-sided focal weakness but does have chronic hip pain the right hip. Upon arrival to [place], her laboratory data was remarkable for a sodium of 133, positive COVID, and midly positive Monospot while imaging was unremarkable. On examination, she is resting comfortably denying any current fevers, chills, nausea, vomiting, diarrhea, syncope, presyncope, visual changes, orthopnea, PND, odynophagia, dysphagia, chest pain, shortness of breath, belly pain, dysuria, hematuria, melena, or hematochezia. All other systems were reviewed and were negative. Her strength is her RUE is 5/5 while there is drift and 3/5 weakness in her RLE. - Review of Systems Constitutional: Other ( PER HPI) Medications & Allergies Home Medications: Home Medication List Losartan/Hydrochlorothiazide [Losartan-Hctz 100-25 mg Tab] 1 each PO DAILY 04/24/19 [History Confirmed 05/27/19] Pravastatin Sodium [Pravachol] 40 mg PO DAILY 04/24/19 [History Confirmed 07/26/23] Carvedilol 12.5 mg [Coreg 12.5 mg] 12.5 mg PO HS 07/26/23 [History Confirmed 07/26/23] Insulin Glargine,Hum.rec.anlog [Lantus] 30 units SQ HS 07/26/23 [History Confirmed 07/26/23] Allergies/Adverse Reactions: Allergies Allergy/AdvReac Type Severity Reaction Status Date / Time Penicillins Allergy Hives Verified 07/26/23 16:34 - Past Medical History Past Medical History: Yes Neurological History: No Pertinent History ENT History: Cataracts Cardiac History: High Cholesterol, Hypertension Respiratory History: COPD Endocrine Medical History: Diabetes Type II Musculoskelatal History: No Pertinent History GI Medical History: No Pertinent History History: No Pertinent History Pyscho-Social History: No Pertinent History Reproductive Disorders: No Pertinent History - Female History Are you now?: No - Past Surgical History Past Surgical History: Yes Neuro Surgical History: No Pertinent History Cardiac History: No Pertinent History Respiratory Surgery: No Pertinent History GI Surgical History: No Pertinent History Genitourinary Surgical Hx: No Pertinent History Musculskeletal Surgical Hx: No Pertinent History Female Surgical History: Section, Tubal Ligation - Social History Smoking Status: Never smoker Exposure to second hand smoke: Yes Alcohol: None Drug Use: none - Physical Exam Vital Signs: Vital Signs - 24 hr Temp Pulse Resp BP BP Pulse Ox 07/26/23 22:00 97.2 F 69 20 128/75 07/26/23 20:01 69 20 170/68 97 07/26/23 19:31 68 18 161/79 97 07/26/23 19:00 130/83 98 07/26/23 18:30 126/69 96 07/26/23 18:00 123/78 97 07/26/23 17:30 128/87 96 07/26/23 17:00 146/78 95 07/26/23 16:43 98 07/26/23 16:33 155/72 95 07/26/23 16:11 97.2 F 66 128/75 98 General Appearance: no apparent distress, alert Neurologic Exam: alert, oriented x 3, cooperative, normal mood/affect, nml cerebellar function, nml station & gait, sensation nml, motor deficits (3/5 RLE) Eye Exam: PERRL/EOMI, eyes nml inspection Ears, Nose, Throat Exam: normal ENT inspection, TMs normal, pharynx normal, moist mucous membranes Neck Exam: normal inspection, non-tender, supple, full range of motion Respiratory Exam: normal breath sounds, lungs clear, No respiratory distress Cardiovascular Exam: regular rate/rhythm, normal heart sounds, normal peripheral pulses Gastrointestinal/Abdomen Exam: soft, normal bowel sounds, No tenderness, No mass Back Exam: normal inspection, normal range of motion, No CVA tenderness, No vertebral tenderness Extremity Exam: normal inspection, normal range of motion, pelvis stable Skin Exam: normal color, warm, dry, No rash Lymphatic Exam: No adenopathy Results - Labs Lab/Micro Results: Lab Results-Last 24 Hours 07/26/23 07/26/23 07/26/23 Range/Units 16:18 16:30 16:30 WBC 4.5 (4.0-10.5) x10^3/uL RBC 4.49 (4.1-5.4) x10^6/uL Hgb 13.4 (12.0-16.0) g/dL Hct 40.7 (35-47) % MCV 90.6 (78-100) fL MCH 29.8 (26-32) pg MCHC 32.9 (32-36) g/dL RDW 13.4 (11.5-14.0) % Plt Count 191 (150-450) x10^3/uL MPV 9.1 (7.5-11.0) fL Gran % 58.4 (36.0-66.0) % Immature Gran % (Auto) 0.2 (0.00-0.4) % Nucleat RBC Rel Count 0.0 (0.00-0.1) % Eos # (Auto) 0.14 (0-0.5) x10^3/uL Immature Gran # (Auto) 0.01 (0.00-0.03) x10^3u/L Absolute Lymphs (auto) 1.44 (1.0-4.6) x10^3/uL Absolute Monos (auto) 0.27 (0.0-1.3) x10^3/uL Absolute Nucleated RBC 0.00 (0.00-0.01) x10^3u/L Lymphocytes % 31.7 (24.0-44.0) % Monocytes % 5.9 (0.0-12.0) % Eosinophils % 3.1 (0.00-5.0) % Basophils % 0.7 (0.0-0.4) % Absolute Granulocytes 2.65 (1.4-6.9) x10^3/uL Basophils # 0.03 (0-0.4) x10^3/uL PT (9.4-12.5) SECONDS INR (0.8-3.0) Sodium 133 L (137-145) mmol/L Potassium 3.7 (3.5-5.1) mmol/L Chloride 105 (98-107) mmol/L Carbon Dioxide 22 (22-30) mmol/L Anion Gap 11.0 (5-15) MEQ/L BUN 11 (7-17) mg/dL Creatinine 0.42 L (0.52-1.04) mg/dL Estimated GFR 100.7 ML/MIN Glucose 344 H (74-106) mg/dL POC Glucometer 316 H (74 to 106) mg/dL Calcium 9.3 (8.4-10.2) mg/dL Total Bilirubin 0.30 (0.2-1.3) mg/dL AST 25 (14-36) U/L ALT 19 (0-35) U/L Alkaline Phosphatase 112 (38-126) U/L Serum Total Protein 6.7 (6.3-8.2) g/dL Albumin 3.6 (3.5-5.0) g/dL Urine Color (Yellow) Urine Appearance (Clear) Urine pH (4.6-8.0) Ur Specific [place] (1.005-1.030) Urine Protein (Negative) Urine Glucose (UA) (Negative) mg/dL Urine Ketones (Negative) Urine Blood (Negative) Urine Nitrite (Negative) Urine Bilirubin (Negative) Urine Urobilinogen (0.2) mg/dL Ur Leukocyte Esterase (Negative) U Hyaline Cast (Auto) (0-2) /LPF Urine Microscopic RBC (0-5) /HPF Urine Microscopic WBC (0-5) /HPF Ur Epithelial Cells (None Seen) /HPF Urine Bacteria (None Seen) /HPF Urine Culture Reflexed (NO) Monoscreen (NEGATIVE) Influenza Type A Ag (NEGATIVE) Influenza Type B Ag (NEGATIVE) RSV (PCR) (NEGATIVE) SARS-CoV-2 (PCR) (NEGATIVE) 07/26/23 07/26/23 07/26/23 Range/Units 16:30 16:30 16:43 WBC (4.0-10.5) x10^3/uL RBC (4.1-5.4) x10^6/uL Hgb (12.0-16.0) g/dL Hct (35-47) % MCV (78-100) fL MCH (26-32) pg MCHC (32-36) g/dL RDW (11.5-14.0) % Plt Count (150-450) x10^3/uL MPV (7.5-11.0) fL Gran % (36.0-66.0) % Immature Gran % (Auto) (0.00-0.4) % Nucleat RBC Rel Count (0.00-0.1) % Eos # (Auto) (0-0.5) x10^3/uL Immature Gran # (Auto) (0.00-0.03) x10^3u/L Absolute Lymphs (auto) (1.0-4.6) x10^3/uL Absolute Monos (auto) (0.0-1.3) x10^3/uL Absolute Nucleated RBC (0.00-0.01) x10^3u/L Lymphocytes % (24.0-44.0) % Monocytes % (0.0-12.0) % Eosinophils % (0.00-5.0) % Basophils % (0.0-0.4) % Absolute Granulocytes (1.4-6.9) x10^3/uL Basophils # (0-0.4) x10^3/uL PT 9.9 (9.4-12.5) SECONDS INR 0.90 (0.8-3.0) Sodium (137-145) mmol/L Potassium (3.5-5.1) mmol/L Chloride (98-107) mmol/L Carbon Dioxide (22-30) mmol/L Anion Gap (5-15) MEQ/L BUN (7-17) mg/dL Creatinine (0.52-1.04) mg/dL Estimated GFR ML/MIN Glucose (74-106) mg/dL POC Glucometer (74 to 106) mg/dL Calcium (8.4-10.2) mg/dL Total Bilirubin (0.2-1.3) mg/dL AST (14-36) U/L ALT (0-35) U/L Alkaline Phosphatase (38-126) U/L Serum Total Protein (6.3-8.2) g/dL Albumin (3.5-5.0) g/dL Urine Color Yellow (Yellow) Urine Appearance Clear (Clear) Urine pH 5.5 (4.6-8.0) Ur Specific [place] >=1.030 A (1.005-1.030) Urine Protein Negative (Negative) Urine Glucose (UA) >=1000 A (Negative) mg/dL Urine Ketones Negative (Negative) Urine Blood Negative (Negative) Urine Nitrite Negative (Negative) Urine Bilirubin Negative (Negative) Urine Urobilinogen 1.0 A (0.2) mg/dL Ur Leukocyte Esterase Negative (Negative) U Hyaline Cast (Auto) NONE SEEN (0-2) /LPF Urine Microscopic RBC 0-2 (0-5) /HPF Urine Microscopic WBC 6-10 A (0-5) /HPF Ur Epithelial Cells Few (None Seen) /HPF Urine Bacteria None Seen (None Seen) /HPF Urine Culture Reflexed NO (NO) Monoscreen WEAKLY POSITIVE A (NEGATIVE) Influenza Type A Ag (NEGATIVE) Influenza Type B Ag (NEGATIVE) RSV (PCR) (NEGATIVE) SARS-CoV-2 (PCR) (NEGATIVE) 07/26/23 Range/Units 17:10 WBC (4.0-10.5) x10^3/uL RBC (4.1-5.4) x10^6/uL Hgb (12.0-16.0) g/dL Hct (35-47) % MCV (78-100) fL MCH (26-32) pg MCHC (32-36) g/dL RDW (11.5-14.0) % Plt Count (150-450) x10^3/uL MPV (7.5-11.0) fL Gran % (36.0-66.0) % Immature Gran % (Auto) (0.00-0.4) % Nucleat RBC Rel Count (0.00-0.1) % Eos # (Auto) (0-0.5) x10^3/uL Immature Gran # (Auto) (0.00-0.03) x10^3u/L Absolute Lymphs (auto) (1.0-4.6) x10^3/uL Absolute Monos (auto) (0.0-1.3) x10^3/uL Absolute Nucleated RBC (0.00-0.01) x10^3u/L Lymphocytes % (24.0-44.0) % Monocytes % (0.0-12.0) % Eosinophils % (0.00-5.0) % Basophils % (0.0-0.4) % Absolute Granulocytes (1.4-6.9) x10^3/uL Basophils # (0-0.4) x10^3/uL PT (9.4-12.5) SECONDS INR (0.8-3.0) Sodium (137-145) mmol/L Potassium (3.5-5.1) mmol/L Chloride (98-107) mmol/L Carbon Dioxide (22-30) mmol/L Anion Gap (5-15) MEQ/L BUN (7-17) mg/dL Creatinine (0.52-1.04) mg/dL Estimated GFR ML/MIN Glucose (74-106) mg/dL POC Glucometer (74 to 106) mg/dL Calcium (8.4-10.2) mg/dL Total Bilirubin (0.2-1.3) mg/dL AST (14-36) U/L ALT (0-35) U/L Alkaline Phosphatase (38-126) U/L Serum Total Protein (6.3-8.2) g/dL Albumin (3.5-5.0) g/dL Urine Color (Yellow) Urine Appearance (Clear) Urine pH (4.6-8.0) Ur Specific [place] (1.005-1.030) Urine Protein (Negative) Urine Glucose (UA) (Negative) mg/dL Urine Ketones (Negative) Urine Blood (Negative) Urine Nitrite (Negative) Urine Bilirubin (Negative) Urine Urobilinogen (0.2) mg/dL Ur Leukocyte Esterase (Negative) U Hyaline Cast (Auto) (0-2) /LPF Urine Microscopic RBC (0-5) /HPF Urine Microscopic WBC (0-5) /HPF Ur Epithelial Cells (None Seen) /HPF Urine Bacteria (None Seen) /HPF Urine Culture Reflexed (NO) Monoscreen (NEGATIVE) Influenza Type A Ag NEGATIVE (NEGATIVE) Influenza Type B Ag NEGATIVE (NEGATIVE) RSV (PCR) NEGATIVE (NEGATIVE) SARS-CoV-2 (PCR) POSITIVE A (NEGATIVE) Accuchecks Date 07/26/23 Time 16:18 - Radiology Impressions Radiology Exams & Impressions: Radiology Procedures Category Date Time Status CHEST 1 VIEW (PORTABLE) Routine Exams 07/26/23 23:16 Ordered HEAD WITHOUT CONTRAST [CT] Stat Exams 07/26/23 16:25 Completed MRI BRAIN W/O CONTRAST [MRI] Stat Exams 07/27/23 08:00 Ordered MRI BRAIN WITH CONTRAST [MRI] Routine Exams 07/27/23 09:00 Ordered Assessment/Plan (1) Weakness Current Visit: Yes Status: Acute Assessment & Plan: ASSESSMENT 1. Weakness 2. Hyponatremia 3. COVID Positive 4. Mononucleosis Positive 5. Hypertension 6. Hyperlipidemia 7. Type II Diabetes Mellitus PLAN 1. Gentle fluids 2. MRI in AM; daily ASA; Neurology has evaluated her 3. CXR for screening; on RA 4. Continue antihypertensives 5. Continue diabetic regimen 6. Continue statin Lovenox The entirety of this encounter was done via telemedicine Cristopher Bell MD Pulmonary and Critical Care Medicine Code(s): R53.1 - WEAKNESS Telemedicine Encounter - Telemedicine Encounter Telemedicine Encounter: The entirety of this encounter was performed via Telemedicine"
[2023-07-26] MEDS: COREG 12.5 MG PO SCH (23:37)
[2023-07-26] MEDS ORDERED: COREG 12.5 MG ONE (23:37)
[2023-07-27 04:57] LABS: Absolute Neutrophil Ct (ANC) 2.09 x10^3/uL (1.4-6.9); BASOPHIL % 0.9 % (0.0-0.4); Basophil (Absolute #) 0.04 x10^3/uL (0-0.4); Eosinophil % 3.9 % (0.00-5.0); Eosinophil (Absolute #) 0.17 x10^3/uL (0-0.5); Hematocrit 37.9 % (35-47); Hemoglobin 12.3 g/dL (12.0-16.0); IMMATURE GRAN # 0.01 x10^3u/L (0.00-0.03); IMMATURE GRAN % 0.2 % (0.00-0.4); Lymphocyte (Absolute #) 1.75 x10^3/uL (1.0-4.6); Lymphocytes % 39.8 % (24.0-44.0); Mean Corpuscular Hemoglobin 29.9 pg (26-32); Mean Corpuscular Hgb Concent. 32.5 g/dL (32-36); Monocyte (Absolute #) 0.34 x10^3/uL (0.0-1.3); Monocytes % 7.7 % (0.0-12.0); Neutrophil % 47.5 % (36.0-66.0); Platelet Count 172 x10^3/uL (150-450); Red Blood Count 4.12 x10^6/uL (4.1-5.4); Red Cell Distribution Width 13.2 % (11.5-14.0); White Blood Count 4.4 x10^3/uL (4.0-10.5)
--- NOTE | 2023-07-27 05:21 | PCM.NOTE ---
Date and Time: 07/27/23 0514 Subjective Assessment: HPI: Ms. Medina is a 78 year-old female with HTN, HLD, and DM2 who presents with weakness inlcuding some right-sided focal weakness. She admits to one week of generalized weakness with worsening today - she noticed some right-sided focal weakness but does have chronic hip pain the right hip. Upon arrival to [place], her laboratory data was remarkable for a sodium of 133, positive COVID, and midly positive Monospot while imaging was unremarkable. On examination, she is resting comfortably denying any current fevers, chills, nausea, vomiting, diarrhea, syncope, presyncope, visual changes, orthopnea, PND, odynophagia, dysphagia, chest pain, shortness of breath, belly pain, dysuria, hematuria, melena, or hematochezia. All other systems were reviewed and were negative. Her strength is her RUE is 5/5 while there is drift and 3/[address] weakness in her RLE. CT head showing Nonacute senile brain. Minimal right maxillary sinus disease. Neurology has been consulted, plan for MRI 07/27/23: Met with patient bedside. Endorses improvement of weakness, minor sore throat. States she does have shortness of breath but this is her baseline. Plan for MRI today per neurology recs, if this looks good, will discharge tomorrow. - Review of Systems Constitutional: Weakness Eyes: No Symptoms Ears, Nose, & Throat: No Symptoms Respiratory: Short Of Breath Cardiac: No Symptoms Abdominal/Gastrointestinal: No Symptoms Genitourinary Symptoms: No Symptoms Musculoskeletal: No Symptoms Skin: No Symptoms Neurological: No Symptoms Psychological: No Symptoms Endocrine: No Symptoms Objective Exam General Appearance: no apparent distress Neurologic Exam: alert, oriented x 3, cooperative Skin Exam: normal color Eye Exam: PERRL Ears, Nose, Throat Exam: normal ENT inspection Neck Exam: normal inspection Respiratory Exam: normal breath sounds, lungs clear Cardiovascular Exam: regular rate/rhythm, normal heart sounds Gastrointestinal/Abdomen Exam: soft, normal bowel sounds Extremity Exam: normal inspection Back Exam: normal inspection Pelvic Exam: deferred Rectal Exam: deferred OBJECTIVE DATA Vital Signs: Vital Signs - 24 hr Temp Pulse Resp BP BP Pulse Ox 07/27/23 04:00 98.1 F 62 17 122/65 95 07/27/23 00:00 17 07/26/23 23:51 97.8 F 64 17 144/71 96 07/26/23 22:00 97.2 F 69 20 128/75 07/26/23 20:01 69 20 170/68 97 07/26/23 19:31 68 18 161/79 97 07/26/23 19:00 130/83 98 07/26/23 18:30 126/69 96 07/26/23 18:00 123/78 97 07/26/23 17:30 128/87 96 07/26/23 17:00 146/78 95 07/26/23 16:43 98 07/26/23 16:33 155/72 95 07/26/23 16:11 97.2 F 66 128/75 98 Pain Assessment - Last Documented Pain Intensity 2 Pain Scale Used 0-10 Pain Scale Intake and Output: Intake & Output 07/24/23 07/25/23 07/26/23 07/27/23 11:59 11:59 11:59 11:59 Intake Total 783 Balance 783 Weight 76.657 kg Lab Results: Lab Results-Last 24 Hours 07/26/23 07/26/23 07/26/23 Range/Units 16:18 16:30 16:30 WBC 4.5 (4.0-10.5) x10^3/uL RBC 4.49 (4.1-5.4) x10^6/uL Hgb 13.4 (12.0-16.0) g/dL Hct 40.7 (35-47) % MCV 90.6 (78-100) fL MCH 29.8 (26-32) pg MCHC 32.9 (32-36) g/dL RDW 13.4 (11.5-14.0) % Plt Count 191 (150-450) x10^3/uL MPV 9.1 (7.5-11.0) fL Gran % 58.4 (36.0-66.0) % Immature Gran % (Auto) 0.2 (0.00-0.4) % Nucleat RBC Rel Count 0.0 (0.00-0.1) % Eos # (Auto) 0.14 (0-0.5) x10^3/uL Immature Gran # (Auto) 0.01 (0.00-0.03) x10^3u/L Absolute Lymphs (auto) 1.44 (1.0-4.6) x10^3/uL Absolute Monos (auto) 0.27 (0.0-1.3) x10^3/uL Absolute Nucleated RBC 0.00 (0.00-0.01) x10^3u/L Lymphocytes % 31.7 (24.0-44.0) % Monocytes % 5.9 (0.0-12.0) % Eosinophils % 3.1 (0.00-5.0) % Basophils % 0.7 (0.0-0.4) % Absolute Granulocytes 2.65 (1.4-6.9) x10^3/uL Basophils # 0.03 (0-0.4) x10^3/uL PT (9.4-12.5) SECONDS INR (0.8-3.0) Sodium 133 L (137-145) mmol/L Potassium 3.7 (3.5-5.1) mmol/L Chloride 105 (98-107) mmol/L Carbon Dioxide 22 (22-30) mmol/L Anion Gap 11.0 (5-15) MEQ/L BUN 11 (7-17) mg/dL Creatinine 0.42 L (0.52-1.04) mg/dL Estimated GFR 100.7 ML/MIN Glucose 344 H (74-106) mg/dL POC Glucometer 316 H (74 to 106) mg/dL Calcium 9.3 (8.4-10.2) mg/dL Total Bilirubin 0.30 (0.2-1.3) mg/dL AST 25 (14-36) U/L ALT 19 (0-35) U/L Alkaline Phosphatase 112 (38-126) U/L Serum Total Protein 6.7 (6.3-8.2) g/dL Albumin 3.6 (3.5-5.0) g/dL Urine Color (Yellow) Urine Appearance (Clear) Urine pH (4.6-8.0) Ur Specific [place] (1.005-1.030) Urine Protein (Negative) Urine Glucose (UA) (Negative) mg/dL Urine Ketones (Negative) Urine Blood (Negative) Urine Nitrite (Negative) Urine Bilirubin (Negative) Urine Urobilinogen (0.2) mg/dL Ur Leukocyte Esterase (Negative) U Hyaline Cast (Auto) (0-2) /LPF Urine Microscopic RBC (0-5) /HPF Urine Microscopic WBC (0-5) /HPF Ur Epithelial Cells (None Seen) /HPF Urine Bacteria (None Seen) /HPF Urine Culture Reflexed (NO) Monoscreen (NEGATIVE) Influenza Type A Ag (NEGATIVE) Influenza Type B Ag (NEGATIVE) RSV (PCR) (NEGATIVE) SARS-CoV-2 (PCR) (NEGATIVE) 07/26/23 07/26/23 07/26/23 Range/Units 16:30 16:30 16:43 WBC (4.0-10.5) x10^3/uL RBC (4.1-5.4) x10^6/uL Hgb (12.0-16.0) g/dL Hct (35-47) % MCV (78-100) fL MCH (26-32) pg MCHC (32-36) g/dL RDW (11.5-14.0) % Plt Count (150-450) x10^3/uL MPV (7.5-11.0) fL Gran % (36.0-66.0) % Immature Gran % (Auto) (0.00-0.4) % Nucleat RBC Rel Count (0.00-0.1) % Eos # (Auto) (0-0.5) x10^3/uL Immature Gran # (Auto) (0.00-0.03) x10^3u/L Absolute Lymphs (auto) (1.0-4.6) x10^3/uL Absolute Monos (auto) (0.0-1.3) x10^3/uL Absolute Nucleated RBC (0.00-0.01) x10^3u/L Lymphocytes % (24.0-44.0) % Monocytes % (0.0-12.0) % Eosinophils % (0.00-5.0) % Basophils % (0.0-0.4) % Absolute Granulocytes (1.4-6.9) x10^3/uL Basophils # (0-0.4) x10^3/uL PT 9.9 (9.4-12.5) SECONDS INR 0.90 (0.8-3.0) Sodium (137-145) mmol/L Potassium (3.5-5.1) mmol/L Chloride (98-107) mmol/L Carbon Dioxide (22-30) mmol/L Anion Gap (5-15) MEQ/L BUN (7-17) mg/dL Creatinine (0.52-1.04) mg/dL Estimated GFR ML/MIN Glucose (74-106) mg/dL POC Glucometer (74 to 106) mg/dL Calcium (8.4-10.2) mg/dL Total Bilirubin (0.2-1.3) mg/dL AST (14-36) U/L ALT (0-35) U/L Alkaline Phosphatase (38-126) U/L Serum Total Protein (6.3-8.2) g/dL Albumin (3.5-5.0) g/dL Urine Color Yellow (Yellow) Urine Appearance Clear (Clear) Urine pH 5.5 (4.6-8.0) Ur Specific [place] >=1.030 A (1.005-1.030) Urine Protein Negative (Negative) Urine Glucose (UA) >=1000 A (Negative) mg/dL Urine Ketones Negative (Negative) Urine Blood Negative (Negative) Urine Nitrite Negative (Negative) Urine Bilirubin Negative (Negative) Urine Urobilinogen 1.0 A (0.2) mg/dL Ur Leukocyte Esterase Negative (Negative) U Hyaline Cast (Auto) NONE SEEN (0-2) /LPF Urine Microscopic RBC 0-2 (0-5) /HPF Urine Microscopic WBC 6-10 A (0-5) /HPF Ur Epithelial Cells Few (None Seen) /HPF Urine Bacteria None Seen (None Seen) /HPF Urine Culture Reflexed NO (NO) Monoscreen WEAKLY POSITIVE A (NEGATIVE) Influenza Type A Ag (NEGATIVE) Influenza Type B Ag (NEGATIVE) RSV (PCR) (NEGATIVE) SARS-CoV-2 (PCR) (NEGATIVE) 07/26/23 07/27/23 Range/Units 17:10 04:30 WBC 4.4 (4.0-10.5) x10^3/uL RBC 4.12 (4.1-5.4) x10^6/uL Hgb 12.3 (12.0-16.0) g/dL Hct 37.9 (35-47) % MCV 92.0 (78-100) fL MCH 29.9 (26-32) pg MCHC 32.5 (32-36) g/dL RDW 13.2 (11.5-14.0) % Plt Count 172 (150-450) x10^3/uL MPV 9.0 (7.5-11.0) fL Gran % 47.5 (36.0-66.0) % Immature Gran % (Auto) 0.2 (0.00-0.4) % Nucleat RBC Rel Count 0.0 (0.00-0.1) % Eos # (Auto) 0.17 (0-0.5) x10^3/uL Immature Gran # (Auto) 0.01 (0.00-0.03) x10^3u/L Absolute Lymphs (auto) 1.75 (1.0-4.6) x10^3/uL Absolute Monos (auto) 0.34 (0.0-1.3) x10^3/uL Absolute Nucleated RBC 0.00 (0.00-0.01) x10^3u/L Lymphocytes % 39.8 (24.0-44.0) % Monocytes % 7.7 (0.0-12.0) % Eosinophils % 3.9 (0.00-5.0) % Basophils % 0.9 (0.0-0.4) % Absolute Granulocytes 2.09 (1.4-6.9) x10^3/uL Basophils # 0.04 (0-0.4) x10^3/uL PT (9.4-12.5) SECONDS INR (0.8-3.0) Sodium (137-145) mmol/L Potassium (3.5-5.1) mmol/L Chloride (98-107) mmol/L Carbon Dioxide (22-30) mmol/L Anion Gap (5-15) MEQ/L BUN (7-17) mg/dL Creatinine (0.52-1.04) mg/dL Estimated GFR ML/MIN Glucose (74-106) mg/dL POC Glucometer (74 to 106) mg/dL Calcium (8.4-10.2) mg/dL Total Bilirubin (0.2-1.3) mg/dL AST (14-36) U/L ALT (0-35) U/L Alkaline Phosphatase (38-126) U/L Serum Total Protein (6.3-8.2) g/dL Albumin (3.5-5.0) g/dL Urine Color (Yellow) Urine Appearance (Clear) Urine pH (4.6-8.0) Ur Specific [place] (1.005-1.030) Urine Protein (Negative) Urine Glucose (UA) (Negative) mg/dL Urine Ketones (Negative) Urine Blood (Negative) Urine Nitrite (Negative) Urine Bilirubin (Negative) Urine Urobilinogen (0.2) mg/dL Ur Leukocyte Esterase (Negative) U Hyaline Cast (Auto) (0-2) /LPF Urine Microscopic RBC (0-5) /HPF Urine Microscopic WBC (0-5) /HPF Ur Epithelial Cells (None Seen) /HPF Urine Bacteria (None Seen) /HPF Urine Culture Reflexed (NO) Monoscreen (NEGATIVE) Influenza Type A Ag NEGATIVE (NEGATIVE) Influenza Type B Ag NEGATIVE (NEGATIVE) RSV (PCR) NEGATIVE (NEGATIVE) SARS-CoV-2 (PCR) POSITIVE A (NEGATIVE) Radiology Exams: Radiology Procedures Category Date Time Status CHEST 1 VIEW (PORTABLE) Routine Exams 07/26/23 23:16 Taken HEAD WITHOUT CONTRAST [CT] Stat Exams 07/26/23 16:25 Completed MRI BRAIN W/O CONTRAST [MRI] Stat Exams 07/27/23 08:00 Ordered MRI BRAIN WITH CONTRAST [MRI] Routine Exams 07/27/23 09:00 Ordered Assessment/Plan (1) COVID-19 virus infection Current Visit: Yes Status: Acute Assessment & Plan: -On baseline RA -CXR with no cardiopulmonary processes -Supportive therapies Code(s): U07.1 - COVID-19 (2) Hyperglycemia Current Visit: Yes Status: Acute Assessment & Plan: -ADA diet -SSI -Lantus -aic at 10.7 -Discussed importance of good gycemic control Code(s): R73.9 - HYPERGLYCEMIA, UNSPECIFIED (3) Mononucleosis Current Visit: Yes Status: Acute Assessment & Plan: -supportive treatment, weak positive Code(s): B27.90 - INFECTIOUS MONONUCLEOSIS, UNSPECIFIED WITHOUT COMPLICATION (4) Weakness Current Visit: Yes Status: Acute Assessment & Plan: -right-sided focal weakness -CT negative for acute findings -Neurology consulted, MRI pending -PT/OT Code(s): R53.1 - WEAKNESS (5) Diabetes Current Visit: Yes Status: Acute Assessment & Plan: -ADA diet -SSI -Lantus -aic Code(s): E11.9 - TYPE 2 DIABETES MELLITUS WITHOUT COMPLICATIONS (6) Hypertension Current Visit: Yes Status: Acute Assessment & Plan: -stable, continue home meds Code(s): I10 - ESSENTIAL (PRIMARY) HYPERTENSION (7) HLD (hyperlipidemia) Current Visit: Yes Status: Acute Assessment & Plan: -continue home meds Code(s): E78.5 - HYPERLIPIDEMIA, UNSPECIFIED
[2023-07-27 05:26] LABS: ALBUMIN 3.1 g/dL (3.5-5.0); ANION GAP 9.7 MEQ/L (5-15); BILIRUBIN,TOTAL 0.3 mg/dL (0.2-1.3); Creatinine 1 0.44 mg/dL (0.52-1.04); EST GLOMERULAR FILTRATION RATE 99.6 ML/MIN; Potassium 3.9 mmol/L (3.5-5.1)
--- NOTE | 2023-07-27 08:39 | XRAY ---
Indication: Covid 19. Comparison: October 31, 2011 Portable chest demonstrates minimal bibasilar subsegmental atelectasis/scarring. No focal infiltrate, consolidation, or large effusion. Heart and mediastinal structures within normal limits. Bony thorax intact with osteopenia and mild degenerative changes. Impression: Nonacute chest with chronic features.
[2023-07-27] MEDS ORDERED: CEPACOL SORE THROAT LOZENGE PO PRN (08:50)
[2023-07-27] MEDS ORDERED: CEPACOL SORE THROAT LOZENGE ONE (09:07)
[2023-07-27] MEDS: Cozaar 50 MG PO SCH (09:09)
[2023-07-27] MEDS: ZOCOR 20MG PO SCH (09:09)
[2023-07-27] MEDS: ENOXAPARIN SODIUM SQ SCH (09:10)
[2023-07-27] MEDS: HUMALOG SQ PRN ×3 (09:10→20:47)
[2023-07-27] MEDS: hydroDIURIL 25 MG PO SCH (09:10)
[2023-07-27] MEDS ORDERED: NON-FORMULARY ITEM (Losartan/Hydrochlorothiazide [Losartan-Hctz 100-25 Mg Tab] 1 EACH Tabl PO SCH (10:00)
--- NOTE | 2023-07-27 11:55 | XRAY ---
Indication: Lateralizing movement. Negative CT head without contrast exam. Sagittal, coronal, and axial MRI brain performed without contrast using T1, T2, FLAIR, diffusion, and ADC sequences. Comparison: November 10, 2009 Again age-appropriate global atrophy with progressive worsening mild bilateral periventricular degenerative micro-ischemia signal. Previous 1.7 x 0.8 cm focus of encephalomalacia peripheral right cerebellum unchanged, probable old infarct. No acute intracranial hemorrhage, abnormal extra-axial fluid collection, or mass effect. Diffusion images are negative for restricted signal. Fourth ventricle is midline without hydrocephalus. 7/8 cranial nerve complex bilaterally symmetric. Normal flow-void signal within the major intracerebral circulation. Normal appearing craniocervical junction and sella turcica. Minimal mucosal thickening right maxillary sinus with small fluid leveling. Remaining paranasal sinuses are clear. Impression: 1. Global atrophy and degenerative micro-ischemia within normal limits for patient's age. 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 2. No acute intracranial abnormalities or evidence for evolving large vessel territorial stroke. 3. New right maxillary sinus disease.
[2023-07-27] MEDS: Sodium Chloride 0.9% 1000 ML 1,000 ML IV SCH (14:19)
[2023-07-27] MEDS: COREG 12.5 MG PO SCH (20:47)
[2023-07-27] MEDS: Lantus Insulin SQ SCH ×2 (20:48→20:58)
[2023-07-27] MEDS: TYLENOL 325 MG PO PRN (20:57)
--- NOTE | 2023-07-28 05:08 | PCM.DS ---
Discharge Summary Date of Admission: 07/26/23 20:50 Date of Discharge: 07/28/23 Admitting Physician: VIVIENNE CHILDS MD Primary Care Provider: MIRACLE MEDINA Allergies Allergies Penicillins Allergy (Verified 07/26/23 16:34) Hives swelling Hospital Summary - Hospital Course Hospital Course: HPI: Ms. Medina is a 78 year-old female with HTN, HLD, and DM2 who presents with weakness inlcuding some right-sided focal weakness. She admits to one week of generalized weakness with worsening today - she noticed some right-sided focal weakness but does have chronic hip pain the right hip. Upon arrival to [place], her laboratory data was remarkable for a sodium of 133, positive COVID, and midly positive Monospot while imaging was unr emarkable. On examination, she is resting comfortably denying any current fevers, chills, nausea, vomiting, diarrhea, syncope, presyncope, visual changes, orthopnea, PND, odynophagia, dysphagia, chest pain, shortness of breath, belly pain, dysuria, hematuria, melena, or hematochezia. All other systems were reviewed and were negative. Her strength is her RUE is 5/5 while there is drift and 3/5 weakness in her RLE. CT head showing Nonacute senile brain. Minimal right maxillary sinus disease. Neurology has been consulted, with recommendations for MRI. MRI findings showing . No acute intracranial abnormalities or evidence for evolving large vessel territorial stroke. Global atrophy and degenerative micro-ischemia within normal limits for patient's age. 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 Patient clear for discharge today. Neurology recommending ASA and continue statin, follow u as OP. Advised follow up with endocrinology per pt request. Patient to follow up with neurology/pcp as well. Discharge Note New Diagnosis: COVID/weakness New Medications: ASA Follow Up: PCP/Neuro/endocrinology Latest Assessment & Plan (1) COVID-19 virus infection Current Visit: Yes Status: Acute Assessment & Plan: -On baseline RA -CXR with no cardiopulmonary processes -Supportive therapies Code(s): U07.1 - COVID-19 (2) Hyperglycemia Current Visit: Yes Status: Acute Assessment & Plan: -ADA diet -SSI -Lantus -aic at 10.7 -Discussed importance of good gycemic control Code(s): R73.9 - HYPERGLYCEMIA, UNSPECIFIED (3) Mononucleosis Current Visit: Yes Status: Acute Assessment & Plan: -supportive treatment, weak positive Code(s): B27.90 - INFECTIOUS MONONUCLEOSIS, UNSPECIFIED WITHOUT COMPLICATION (4) Weakness Current Visit: Yes Status: Acute Assessment & Plan: -right-sided focal weakness -CT negative for acute findings -Neurology consulted, MRI pending -PT/OT Code(s): R53.1 - WEAKNESS (5) Diabetes Current Visit: Yes Status: Acute Assessment & Plan: -ADA diet -SSI -Lantus -aic Code(s): E11.9 - TYPE 2 DIABETES MELLITUS WITHOUT COMPLICATIONS (6) Hypertension Current Visit: Yes Status: Acute Assessment & Plan: -stable, continue home meds Code(s): I10 - ESSENTIAL (PRIMARY) HYPERTENSION (7) HLD (hyperlipidemia) Current Visit: Yes Status: Acute Assessment & Plan: -continue home meds Code(s): E78.5 - HYPERLIPIDEMIA, UNSPECIFIED I spent 35 minutes [id number] with the patient on the day of discharge performing discharge exam, discussing hospital stay and discharge instructions with patient and caregivers, preparation of discharge records, prescriptions & referral forms and addressing any questions/concerns the patient had as documented above. - Vitals & Intake/Output Vital Signs: Vital Signs Temperature 98.5 F 07/27/23 23:35 Pulse Rate 65 07/27/23 23:35 Respiratory Rate 17 07/28/23 04:00 Blood Pressure 126/66 07/27/23 23:35 O2 Sat by Pulse Oximetry 95 07/27/23 23:35 Intake & Output: Intake & Output 07/25/23 07/26/23 07/27/23 07/28/23 11:59 11:59 11:59 11:59 Intake Total 1143 1000 Output Total 700 3200 Balance 443 -2200 Weight 76.657 kg - Lab Result Diagrams: 07/27/23 04:30 07/27/23 04:30 Lab Results-Last 24 Hrs: Lab Results-Last 24 Hours 07/27/23 07/27/23 07/27/23 Range/Units 04:30 04:30 05:00 Sodium 135 L (137-145) mmol/L Potassium 3.9 (3.5-5.1) mmol/L Chloride 106 (98-107) mmol/L Carbon Dioxide 23 (22-30) mmol/L Anion Gap 9.7 (5-15) MEQ/L BUN 9 (7-17) mg/dL Creatinine 0.44 L (0.52-1.04) mg/dL Estimated GFR 99.6 ML/MIN Glucose 268 H (74-106) mg/dL POC Glucometer (74 to 106) mg/dL Hemoglobin A1c 10.70 H (4.5-6.0) % Calcium 9.0 (8.4-10.2) mg/dL Magnesium 1.9 (1.6-2.3) mg/dL Total Bilirubin 0.30 (0.2-1.3) mg/dL AST 21 (14-36) U/L ALT 17 (0-35) U/L Alkaline Phosphatase 86 (38-126) U/L Serum Total Protein 6.0 L (6.3-8.2) g/dL Albumin 3.1 L (3.5-5.0) g/dL 07/27/23 07/27/23 07/27/23 Range/Units 08:48 11:41 16:50 Sodium (137-145) mmol/L Potassium (3.5-5.1) mmol/L Chloride (98-107) mmol/L Carbon Dioxide (22-30) mmol/L Anion Gap (5-15) MEQ/L BUN (7-17) mg/dL Creatinine (0.52-1.04) mg/dL Estimated GFR ML/MIN Glucose (74-106) mg/dL POC Glucometer 312 H 212 H 277 H (74 to 106) mg/dL Hemoglobin A1c (4.5-6.0) % Calcium (8.4-10.2) mg/dL Magnesium (1.6-2.3) mg/dL Total Bilirubin (0.2-1.3) mg/dL AST (14-36) U/L ALT (0-35) U/L Alkaline Phosphatase (38-126) U/L Serum Total Protein (6.3-8.2) g/dL Albumin (3.5-5.0) g/dL 07/27/23 Range/Units 20:36 Sodium (137-145) mmol/L Potassium (3.5-5.1) mmol/L Chloride (98-107) mmol/L Carbon Dioxide (22-30) mmol/L Anion Gap (5-15) MEQ/L BUN (7-17) mg/dL Creatinine (0.52-1.04) mg/dL Estimated GFR ML/MIN Glucose (74-106) mg/dL POC Glucometer 329 H (74 to 106) mg/dL Hemoglobin A1c (4.5-6.0) % Calcium (8.4-10.2) mg/dL Magnesium (1.6-2.3) mg/dL Total Bilirubin (0.2-1.3) mg/dL AST (14-36) U/L ALT (0-35) U/L Alkaline Phosphatase (38-126) U/L Serum Total Protein (6.3-8.2) g/dL Albumin (3.5-5.0) g/dL Micro Results-Entire Visit: Accuchecks Date 07/27/23 Date 07/27/23 Time 11:48 Time 09:12 - Radiology Exams Ordered Rad Exams-Entire Visit: Radiology Procedures Category Date Time Status CHEST 1 VIEW (PORTABLE) Routine Exams 07/26/23 23:16 Completed HEAD WITHOUT CONTRAST [CT] Stat Exams 07/26/23 16:25 Completed MRI BRAIN W/O CONTRAST [MRI] Stat Exams 07/27/23 08:00 Completed Discharge Exam General Appearance: no apparent distress Neurologic Exam: alert, oriented x 3, cooperative Eye Exam: PERRL Ears, Nose, Throat Exam: normal ENT inspection Neck Exam: normal inspection Respiratory Exam: crackles/rales Cardiovascular Exam: regular rate/rhythm, normal heart sounds Gastrointestinal/Abdomen Exam: soft, normal bowel sounds Pelvic Exam: deferred Rectal Exam: deferred Back Exam: normal inspection Extremity Exam: normal inspection Skin Exam: normal color Final Diagnosis/Problem List - Final Discharge Diagnosis/Problem (1) COVID-19 virus infection Current Visit: Yes Status: Acute Code(s): U07.1 - COVID-19 (2) Hyperglycemia Current Visit: Yes Status: Acute Code(s): R73.9 - HYPERGLYCEMIA, UNSPECIFIED (3) Mononucleosis Current Visit: Yes Status: Acute Code(s): B27.90 - INFECTIOUS MONONUCLEOSIS, UNSPECIFIED WITHOUT COMPLICATION (4) Weakness Current Visit: Yes Status: Acute Code(s): R53.1 - WEAKNESS (5) Diabetes Current Visit: Yes Status: Acute Code(s): E11.9 - TYPE 2 DIABETES MELLITUS WITHOUT COMPLICATIONS (6) Hypertension Current Visit: Yes Status: Acute Code(s): I10 - ESSENTIAL (PRIMARY) HYPERTENSION (7) HLD (hyperlipidemia) Current Visit: Yes Status: Acute Code(s): E78.5 - HYPERLIPIDEMIA, UNSPECIFIED - Discharge Disposition: Home, Self-Care Condition: Stable Prescriptions: New Aspirin EC 81 mg [Ecotrin 81 mg] 81 mg PO DAILY 30 Days #30 tablet Continue Pravastatin Sodium [Pravachol] 40 mg PO DAILY Losartan/Hydrochlorothiazide [Losartan-Hctz 100-25 mg Tab] 1 each PO DAILY Insulin Glargine,Hum.rec.anlog [Lantus] 30 units SQ HS Carvedilol 12.5 mg [Coreg 12.5 mg] 12.5 mg PO HS Instructions: Generalized Weakness (DC), COVID-19 (DC) Follow up with: MIRACLE MEDINA MD [Primary Care Provider] - 08/03/23 2:45 pm MARGARITO HERMOSILLO [NON-STAFF PHY W/O PRIVILEGES] - 1 Week ERX VIDALSE DO [NON-STAFF PHY W/O PRIVILEGES] - 1 Week Forms: Discharge Instructions
[2023-07-28 05:23] VITALS: TEMP 98
[2023-07-28 06:59] VITALS: BP 150/75; PULSE 66; O2SAT 93
[2023-07-28] MEDS: hydroDIURIL 25 MG PO SCH (08:21)
[2023-07-28] MEDS: HUMALOG SQ PRN (08:21)
[2023-07-28] MEDS: ZOCOR 20MG PO SCH (08:21)
[2023-07-28] MEDS: ENOXAPARIN SODIUM SQ SCH (08:21)
[2023-07-28] MEDS: Cozaar 50 MG PO SCH (08:21)
[2023-07-28 08:56] VITALS: RESP 19
== END 2023-07-28 10:42 | disposition home or self-care (01) ==
LOC: ED 15:58 → MED SURG 20:50
PROVIDERS: ADMIT Internal Medicine Critical Care Medicine; ATTEND Internal Medicine Critical Care Medicine
DX: U07.1 COVID-19 (principal); B27.90 Infectious mononucleosis, unspecified without complication; E11.65 Type 2 diabetes mellitus with hyperglycemia; R53.1 Weakness; I10 Essential (primary) hypertension; E78.5 Hyperlipidemia, unspecified; M25.551 Pain in right hip; Z79.899 Other long term (current) drug therapy; Z20.828 Contact with and (suspected) exposure to other viral communicable diseases
CPT/HCPCS: 0241U; 36000; 36415; 70450; 70551; 71045; 80053; 81001; 82947; 83036; 83735; 85025; 85610; 86308; 87040; 93005; 93268; 94760; 99285; G0378; Q3014; J1650; J1817; A9270-GY